=== PATIENT | male | born 1995 | race Caucasian/White ===

== ENCOUNTER 2022-07-23 10:50 | Emergency (ER) | payer BC, SELFPAY ==
[2022-07-23 11:27] VITALS: BP 141/81; PULSE 98; RESP 20; TEMP 38.2; O2SAT 100
[2022-07-23 12:17] LABS: Influenza A QL RT-PCR Positive (Negative); Influenza B QL RT-PCR Negative (Negative); RSV RNA, RT-PCR Negative (Negative); SARS-CoV-2 RNA PCR Negative
--- NOTE | 2022-07-23 12:30 | ED.URI ---
HPI - URI/Sore Throat General Chief Complaint: Upper Respiratory Infection Stated Complaint: vomiting, ST, body aches Time Seen by Provider: 07/23/22 12:03 Source: patient and RN notes reviewed Mode of arrival: ambulatory Limitations: no limitations History of Present Illness HPI Narrative: This is 26 year old male who presents for evaluation of URI symptoms for 2 days. He reports runny nose, congestion, mild cough and body aches. HE is also having sore throat. He denies chest pain, abdominal pain, vomiting. He reports that his kids have been ill but there symptoms resolved.He reports fever and chills. Related Data Home Medications Medication Instructions Recorded Confirmed sapropterin 100 mg soluble tablet 100 mg PO DAILY 07/23/22 (Maryann) Allergies Allergy/AdvReac Type Severity Reaction Status Date / Time No Known Allergies Allergy Verified 07/23/22 11:30 Review of Systems Review of Systems: All systems reviewed & are unremarkable except as noted in HPI and below Constitutional: Constitutional: Reports chills and Reports fever(s) ENT: Reports nasal congestion and Reports sore throat Cardiovascular: Cardiovascular: Denies chest pain and Denies radiating jaw, neck or arm pain Respiratory: Respiratory: Denies chest congestion, Reports cough and Denies dyspnea Gastrointestinal: Gastrointestinal: Denies abdominal pain, Reports diarrhea, Reports nausea and Denies vomiting PMFSH Past Medical History Medical History (Updated 07/23/22 @ 21:34 by Sakina Strickland MD) Patient denies medical problems Surgical History Surgical History (Updated 07/23/22 @ 21:34 by Sakina Strickland MD) No pertinent past surgical history Social History Social History (Updated 07/23/22 @ 21:34 by Sakina Strickland MD) Smoking status: Never smoker Exam Const: General: no acute distress, alert and ill appearing Nutritional Appearance: well nourished Orientation/consciousness: patient oriented x3 Limitations: no limitations HENMT: Head: normal to inspection Ears: external ears normal and TM's normal bilaterally Face and sinus: normal facial exam Throat: posterior oropharynx normal Eyes: Pupils: Equal, round and reactive pupils present EOM: EOMs intact bilaterally Neck: Neck: normal visual inspection Chest: Chest palpation & inspection: normal inspection of the chest Resp: Effort & Inspection: normal respiratory effort Auscultation: clear to auscultation bilaterally Cardio: Rate: regular rate Rhythm: regular rhythm Heart sounds: no murmurs GI: GI Palp: Yes Soft to palpation, No Tenderness to palpation present (GI), No Guarding due to palpation present (GI) and No Rigid due to palpation Auscultation: normal bowel sounds Skin: General skin exam: normal color Rashes: no rashes Wounds: no wounds Neuro: General: patient oriented x3, moves all extremities and CN's II-XI intact bilaterally Cranial nerves: Yes Nystagmus not present Speech: normal speech Extrem: General: normal to inspection Psych: Mental Status: mental status grossly normal Affect: normal affect Attitude: cooperative Course Reevaluation(s) Reevaluation #1: I Discussed with patient that he has influenza as the cause of his symptoms. Date: 07/23/22 Time: 12:32 Vital Signs Vital signs: Vital Signs Temperature 100.8 F H 07/23/22 11:27 Pulse Rate 98 07/23/22 11:27 Respiratory Rate 20 07/23/22 11:27 Blood Pressure 141/81 H 07/23/22 11:27 Pulse Oximetry 100 07/23/22 11:27 Oxygen Delivery Room Air 07/23/22 11:27 Temperature 100.8 F H 07/23/22 11:27 Pulse Rate 98 07/23/22 11:27 Respiratory Rate 20 07/23/22 11:27 Blood Pressure 141/81 H 07/23/22 11:27 Pulse Oximetry 100 07/23/22 11:27 Oxygen Delivery Room Air 07/23/22 11:27 MDM - URI/Sore Throat Lab Data Labs: Lab Results 07/23/22 Range/Units 11:32 Influenza A (RT-PCR) Positive (Negative) Influenza B (RT-PCR) Nega
== END 2022-07-23 13:00 | disposition home or self-care (01) ==
PROVIDERS: Emergency Medicine; Emergency Provider General Practice
DX: J10.1 Influenza due to other identified influenza virus with other respiratory manifestations (principal); Z20.822 Contact with and (suspected) exposure to COVID-19
CPT/HCPCS: 87637; 99283

== ENCOUNTER 2022-10-17 09:07 | Emergency (ER) | payer BC, SELFPAY ==
--- NOTE | ~2022-10-17 | XR_ITS ---
EXAMINATION: XR chest 1V portable DATE: 10/17/2022 10:46 INDICATION: Cough. Adventitious lung sounds. Sputum. TECHNIQUE: frontal view of the chest was obtained. COMPARISON: None FINDINGS: The lungs are clear with no focal airspace opacities, pulmonary edema, pleural effusion or pneumothor ax. The cardiomediastinal silhouette is normal. Mild thoracic dextrocurvature. IMPRESSION: 1. No acute cardiopulmonary disease. Reviewed, dictated and finalized at location [facility]. [employer]
[2022-10-17 09:16] VITALS: BP 140/86; PULSE 100; RESP 16; TEMP 36.6; O2SAT 98
[2022-10-17 10:00] LABS: Strep Group A RT-PCR NOT DETECTED (Negative)
[2022-10-17 10:13] LABS: Influenza A QL RT-PCR Negative (Negative); Influenza B QL RT-PCR Negative (Negative); SARS-CoV-2 RNA PCR Negative
--- NOTE | 2022-10-17 10:14 | ED.GENADULT ---
HPI - General Adult General Chief complaint: Upper Respiratory Infection Stated complaint: flu like symptoms, sob Time Seen by Provider: 10/17/22 09:14 History of Present Illness HPI narrative: This is a 26-year-old male with who presents to the ED with chief complaint of flulike symptoms. This has been going on for 2 days. Reports cough, congestion, sore throat, body aches. He reports sputum production with the cough. Denies any known sick contacts. He does smoke cannabis but not cigarettes. Otherwise denies any further complaints. Denies fevers, chest pain, shortness of breath, nausea, abdominal pain. Related Data Home Medications Medication Instructions Recorded Confirmed sapropterin 100 mg soluble tablet 100 mg PO DAILY 07/23/22 (Maryann) Allergies Allergy/AdvReac Type Severity Reaction Status Date / Time No Known Allergies Allergy Verified 10/17/22 09:18 Review of Systems Review of Systems: CONSTITUTIONAL: Denies fever, chills, or sweats. EYES: Denies visual changes, redness, or discharge. ENT: Endorses congestion, sore throat. Denies otalgia or rhinorrhea. CARDIOVASCULAR: Denies chest pain, palpitations, or edema. RESPIRATORY: Endorses cough with sputum production. Denies dyspnea. GASTROINTESTINAL: Denies abdominal pain, nausea, vomiting, or diarrhea. GENITOURINARY: Denies dysuria or hematuria. SKIN: Denies rash or itching. MUSCULOSKELETAL: Denies back pain, joint pain. Endorses diffuse myalgias worse in the low back. NEUROLOGIC: Denies headache, numbness, dizziness, or weakness. PSYCHIATRIC: Denies anxiety or depression. [facility] Past Medical History Medical History (Updated 10/17/22 @ 10:56 by Kendall Camejo PA-C) Patient denies medical problems Surgical History Surgical History (Updated 07/23/22 @ 21:34 by Sakina Strickland MD) No pertinent past surgical history Social History Social History (Updated 07/23/22 @ 21:34 by Sakina Strickland MD) Smoking status: Never smoker Exam Narrative: GENERAL: Well-appearing, well-nourished, and in no acute distress. HEAD: Normocephalic, atraumatic. EYES: PERRLA and EOMI. ENT: Nares clear, no rhinorrhea or epistaxis. Mucous membranes moist. Posterior oropharynx erythema is present. 1+ tonsillar hypertrophy bilaterally. Oropharynx without tonsillar exudate or other lesions. TMs intact bilaterally NECK: Supple. No adenopathy or masses. CHEST: No respiratory distress. Questionable adventitious sounds in the left and right lower lungs. No wheezes rales or rhonchi HEART: Regular rate and rhythm. No murmur heard. Normal peripheral pulses. ABDOMEN: Soft, nontender, nondistended, normal active bowel sounds. EXTREMITIES: Normal range of motion. No edema. SKIN: Warm, dry, no rash. NEURO: Alert and oriented x3. No focal deficits. PSYCH: Normal mood and affect. Course Vital Signs Vital signs: Vital Signs Temperature 97.8 F 10/17/22 09:16 Pulse Rate 100 10/17/22 09:16 Respiratory Rate 16 10/17/22 09:16 Blood Pressure 140/86 10/17/22 09:16 Pulse Oximetry 98 10/17/22 09:16 Oxygen Delivery Room Air 10/17/22 09:16 Temperature 97.8 F 10/17/22 09:16 Pulse Rate 100 10/17/22 09:16 Respiratory Rate 16 10/17/22 09:16 Blood Pressure 140/86 10/17/22 09:16 Pulse Oximetry 98 10/17/22 09:16 Oxygen Delivery Room Air 10/17/22 09:16 Medical Decision Making [facility] Narrative Medical decision making narrative: This is a 26-year-old male presents chief complaint of flulike symptoms ongoing for 2 days. He also has a cough with sputum production so chest x-ray was ordered. Chest x-ray shows no acute cardiopulmonary process. Strep swab is negative. His flu, COVID are also negative. PERC negative. No chest pain. Symptoms consistent with viral URI of unspecified etiology. Supportive measures discussed. We will give a prescription for Tessalon Perles. Return for any new or worsening symptoms. Patient is understanding
== END 2022-10-17 11:27 | disposition home or self-care (01) ==
PROVIDERS: Emergency Medicine; Emergency Provider Physician Assistant
DX: J06.9 Acute upper respiratory infection, unspecified (principal); Z20.822 Contact with and (suspected) exposure to COVID-19
CPT/HCPCS: 71045; 87636; 87651; 99283

== ENCOUNTER 2023-04-03 12:43 | Emergency (ER) | payer BC, SELFPAY ==
[2023-04-03 12:43] VITALS: BP 109/75; PULSE 78; RESP 16; TEMP 36.7; O2SAT 99
--- NOTE | 2023-04-03 14:33 | ED.GENADULT ---
HPI - General Adult General Chief complaint: Wound/Laceration Stated complaint: STITCHES REMOVAL Time Seen by Provider: 04/03/23 13:31 History of Present Illness HPI narrative: Rocky French is a 27 y/o male who presents with reports of cutting his left hand with a chainsaw about 10 days ago and had sutures placed to his about 5-7. He states he had the sutures placed at a hospital in [facility]. He denies any drainage/ fever/chills. Reports his ROM is intact, no numbness tingling to his fingers/ hand. Related Data Home Medications Medication Instructions Recorded Confirmed sapropterin 100 mg soluble tablet 100 mg PO DAILY 07/23/22 (Maryann) Allergies Allergy/AdvReac Type Severity Reaction Status Date / Time No Known Allergies Allergy Verified 10/17/22 09:18 Review of Systems Review of Systems: CONSTITUTIONAL: Denies fever, chills, or sweats. EYES: Denies visual changes, redness, or discharge. ENT: Denies rhinorrhea, congestion, sore throat, or otalgia. CARDIOVASCULAR: Denies chest pain, palpitations, or edema. RESPIRATORY: Denies cough or dyspnea. GASTROINTESTINAL: Denies abdominal pain, nausea, vomiting, or diarrhea. GENITOURINARY: Denies dysuria or hematuria. SKIN: Denies rash or itching. MUSCULOSKELETAL: Denies back pain, joint pain, or myalgia. NEUROLOGIC: Denies headache, numbness, dizziness, or weakness. PSYCHIATRIC: Denies anxiety or depression. PMFSH Past Medical History Medical History (Updated 04/03/23 @ 14:43 by Rebekah Moody APRN) Patient denies medical problems Surgical History Surgical History (Updated 07/23/22 @ 21:34 by Sakina Strickland MD) No pertinent past surgical history Social History Social History (Updated 07/23/22 @ 21:34 by Sakina Strickland MD) Smoking status: Never smoker Exam Narrative: GENERAL: Well-appearing, well-nourished, and in no acute distress. HEAD: Normocephalic, atraumatic. EYES: PERRLA and EOMI. ENT: Nares clear, no rhinorrhea or epistaxis. Mucous membranes moist. NECK: Supple. No adenopathy or masses. No carotid bruits or JVD CHEST: Clear to auscultation. No respiratory distress. No wheezes rales or rhonchi HEART: Regular rate and rhythm. No murmur heard. Normal peripheral pulses. ABDOMEN: Soft, nontender, nondistended, normal active bowel sounds. EXTREMITIES: Normal range of motion. No edema. SKIN: Warm, dry, no rash. NEURO: No focal deficits. Alert and oriented x3. PSYCH: Normal mood and affect. Course Vital Signs Vital signs: Vital Signs Temperature 36.7 C 04/03/23 12:43 Pulse Rate 78 04/03/23 12:43 Respiratory Rate 16 04/03/23 12:43 Blood Pressure 109/75 04/03/23 12:43 Pulse Oximetry 99 04/03/23 12:43 Temperature 36.7 C 04/03/23 12:43 Pulse Rate 78 04/03/23 12:43 Respiratory Rate 16 04/03/23 12:43 Blood Pressure 109/75 04/03/23 12:43 Pulse Oximetry 99 04/03/23 12:43 Medical Decision Making MDM Narrative Medical decision making narrative: Patient with 3 sutures to the superior aspect of the left index phalanx and 3 sutures to the area between his thumb and index phalanx No active bleeding/ drainage noted. Patient reports of still having a lot of pain to the lacerations Sutures removed without any complications Pulses intact/ sensation intact Talked with pt since he is having continued pain to the lacerations and there is some erythema surrounding the wounds will d/c home with antibiotics to prevent infection Counseled pt to keep his wounds clean/covered until completely healed. Follow up with PCP in 1 week for further evaluation. Return to the ED for any worsening symptoms or concerns. Differential Diagnosis Differential Diagnosis: Suture removal/ wound infection / Medical Records Medical records reviewed: Yes I reviewed the external patient's medical records. Vital Signs Vital Signs: Vital Signs Temperature 36.7 C 04/03/23 12:43 Pulse
[2023-04-03 14:53] VITALS: BP 132/75; PULSE 72; O2SAT 98
== END 2023-04-03 14:54 | disposition home or self-care (01) ==
PROVIDERS: Emergency Provider Nurse Practitioner Family
DX: S61.412D Laceration without foreign body of left hand, subsequent encounter (principal); W29.3XXD Contact with powered garden and outdoor hand tools and machinery, subsequent encounter
CPT/HCPCS: 15853; 99283